=== PATIENT | female | born 1930 | race Caucasian/White ===

== ENCOUNTER → 2017-06-10 | Outpatient (CLI) | payer MEDICARE, OTHER ==
[~2017-06-10] MED LIST: CYAN500 PO; METO25 PO; SPIR25 PO; WARF2.5 PO
[2017-06-10 15:23] LABS: BASOPHILS ABSOLUTE AUTO 0.04 K/mm3 (0.00-0.23); BASOPHILS PERCENT AUTO 1 % (0-2); EOSINOPHILS ABSOLUTE AUTO 0.14 K/mm3 (0.00-0.68); EOSINOPHILS PERCENT AUTO 2 % (0-6); Hematocrit 46.4 % (33.0-51.0); Hemoglobin 14.6 g/dL (11.5-16.0); IMMATURE GRAN ABSOLUTE AUTO 0.01 K/mm3 (0.00-0.10); IMMATURE GRAN PERCENT AUTO 0 % (0-1); LYMPHOCYTES PERCENT AUTO 32 % (21-46); MONOCYTES ABSOLUTE AUTO 0.55 K/mm3 (0.16-1.47); MONOCYTES PERCENT AUTO 8 % (4-13); Mean Corpuscular HGB 28.5 pg (26.0-34.0); Mean Corpuscular HGB Conc 31.5 g/dL (31.5-36.5); Mean Corpuscular Volume 90 fL (80-100); Mean Platelet Volume 11.5 fL (9.1-12.4); NEUTROPHILS ABSOLUTE AUTO 4.25 K/mm3 (1.96-9.15); NEUTROPHILS PERCENT AUTO 58 % (41-73); Platelet Count 202 K/mm3 (150-400); RDW Coefficient Variation 13.5 % (11.7-14.2); RDW Standard Deviation 45.3 fL (35.1-46.3); Red Blood Cell Count 5.13 M/mm3 (3.80-5.20); White Blood Cell Count 7.29 K/mm3 (4.00-11.30)
[2017-06-10 15:42] LABS: Alanine Aminotransfer (ALT/SGP 21 U/L (12-78); Albumin, Blood 3.7 g/dL (3.4-5.0); Alk Phos 73 U/L (50-136); Anion Gap 8 mmol/L (6-16); Aspartate Aminotrans (AST/SGOT 20 U/L (12-37); Bilirubin, Total 0.5 mg/dL (0.1-1.0); Blood Urea Nitrogen 25 mg/dL (8-24); Bun/Creatinine Ratio 27.7 (12.0-20.0); CO2, Blood 30 mmol/L (21-32); Calcium, Blood 9.2 mg/dL (8.5-10.1); Chloride, Blood 105 mmol/L (98-108); Globulin, Blood 3.7 g/dL (2.2-4.0); Glomerular Filtration Rate >60 (60-); Glucose, Blood 97 mg/dL (70-99); Potassium, Blood 4.4 mmol/L (3.5-5.5); Sodium, Blood 143 mmol/L (136-145); Total Protein, Blood 7.4 g/dL (6.4-8.2)
== END ==
LOC: LAB 15:15
PROVIDERS: Internal Medicine
DX: R60.9 Edema, unspecified (principal); G47.11 Idiopathic hypersomnia with long sleep time; F03.90 Unspecified dementia, unspecified severity, without behavioral disturbance, psychotic disturbance, mood disturbance, and anxiety
CPT/HCPCS: 80053; 84443; 85025

== ENCOUNTER 2018-08-22 12:04 | Inpatient (IN) | payer MEDICARE, OTHER ==
[~2018-08-22] VITALS: Ht 160 cm; Wt 57.3 kg
[~2018-08-22 12:04] MED LIST changes: +ASPI81CH PO; +Augmentin 875-1 EACH PO; +DONE10 PO; +Daily Multivit1 EAC2 PO; +Exelon1 EACH TD; +Flagyl500 MG PO; +KEFLEX250 MG PO; +TOCO1000 PO
[2018-08-22 12:48] LABS: BASOPHILS ABSOLUTE AUTO 0.01 K/mm3 (0.00-0.23); BASOPHILS PERCENT AUTO 0 % (0-2); EOSINOPHILS PERCENT AUTO 0 % (0-6); Hematocrit 40.7 % (33.0-51.0); Hemoglobin 12.8 g/dL (11.5-16.0); IMMATURE GRAN ABSOLUTE AUTO 0.04 K/mm3 (0.00-0.10); IMMATURE GRAN PERCENT AUTO 0 % (0-1); LYMPHOCYTES ABSOLUTE AUTO 0.85 K/mm3 (0.84-5.20); LYMPHOCYTES PERCENT AUTO 9 % (21-46); MONOCYTES ABSOLUTE AUTO 0.72 K/mm3 (0.16-1.47); MONOCYTES PERCENT AUTO 8 % (4-13); Mean Corpuscular HGB 28.9 pg (26.0-34.0); Mean Corpuscular HGB Conc 31.4 g/dL (31.5-36.5); Mean Corpuscular Volume 92 fL (80-100); Mean Platelet Volume 11.6 fL (9.1-12.4); NEUTROPHILS ABSOLUTE AUTO 7.43 K/mm3 (1.96-9.15); NEUTROPHILS PERCENT AUTO 82 % (41-73); Platelet Count 147 K/mm3 (150-400); RDW Coefficient Variation 13.7 % (11.7-14.2); Red Blood Cell Count 4.43 M/mm3 (3.80-5.20); White Blood Cell Count 9.05 K/mm3 (4.00-11.30)
[2018-08-22 13:09] LABS: Alanine Aminotransfer (ALT/SGP 82 U/L (12-78); Albumin, Blood 2.7 g/dL (3.4-5.0); Albumin/Globulin Ratio 0.7 (0.8-1.8); Alk Phos 95 U/L (50-136); Anion Gap 7 mmol/L (6-16); Aspartate Aminotrans (AST/SGOT 105 U/L (12-37); Bilirubin, Total 0.6 mg/dL (0.1-1.0); Blood Urea Nitrogen 27 mg/dL (8-24); Bun/Creatinine Ratio 38.6 (12.0-20.0); CO2, Blood 29 mmol/L (21-32); Calcium, Blood 8.9 mg/dL (8.5-10.1); Chloride, Blood 104 mmol/L (98-108); Globulin, Blood 3.7 g/dL (2.2-4.0); Glomerular Filtration Rate >60 (60-); Glucose, Blood 112 mg/dL (70-99); Potassium, Blood 3.4 mmol/L (3.5-5.5); Sodium, Blood 140 mmol/L (136-145); Total Protein, Blood 6.4 g/dL (6.4-8.2)
[2018-08-22 16:26] LABS: Troponin I 0.017 ng/mL (0.000-0.040)
[2018-08-22 16:27] LABS: Thyroid Stimulating Hormone 0.914 uIU/mL (0.360-4.800)
--- NOTE | 2018-08-22 19:15 | NUR ---
ALERT TO SELF, AND WHERE SHE IS. PER S.O. "NEVER KNOWS DATE." SPEECH CLEAR. KALYN. CHAVEZ. LEFT FACIAL DROOP. LEFT HAND WEAKNESS. BOTH ARMS DRIFT WHEN HELD OUT. WEAK LEFT LOWER EXT. PER S.O. NORMALLY INCONTINENT OF URINE AND STOOL. SOME DEMENTIA PER S.O. COOPERATIVE. PLEASANT. UNLABORED RESPIRATIONS. REPORT TO NIGHT RN
--- NOTE | 2018-08-23 05:11 | NUR ---
VSS, AFEBRILE, A/O, HOLD HTN MEDICATION UNTIL 1600 TODAY PER COMMINICATION ORDER FROM MD. PT'S SPEECH IS VERY CLEAR, NO INDICATION OF CVA. L FACIAL DROOP APPEARS TO BE RESOLVING OVERNOC. KEEP HOB ELEVATED TO 45 DEGREES. NO SIGNIFICANT CHANGES NOTED. WILL REPORT TO ON-COMING SHIFT.
[2018-08-23 05:40] LABS: BASOPHILS ABSOLUTE AUTO 0.01 K/mm3 (0.00-0.23); BASOPHILS PERCENT AUTO 0 % (0-2); EOSINOPHILS PERCENT AUTO 0 % (0-6); Hematocrit 38.1 % (33.0-51.0); Hemoglobin 12.1 g/dL (11.5-16.0); IMMATURE GRAN ABSOLUTE AUTO 0.03 K/mm3 (0.00-0.10); IMMATURE GRAN PERCENT AUTO 0 % (0-1); LYMPHOCYTES ABSOLUTE AUTO 1.05 K/mm3 (0.84-5.20); LYMPHOCYTES PERCENT AUTO 12 % (21-46); MONOCYTES ABSOLUTE AUTO 0.72 K/mm3 (0.16-1.47); MONOCYTES PERCENT AUTO 8 % (4-13); Mean Corpuscular HGB 28.8 pg (26.0-34.0); Mean Corpuscular HGB Conc 31.8 g/dL (31.5-36.5); Mean Corpuscular Volume 91 fL (80-100); NEUTROPHILS ABSOLUTE AUTO 7.14 K/mm3 (1.96-9.15); NEUTROPHILS PERCENT AUTO 80 % (41-73); Platelet Count 143 K/mm3 (150-400); RDW Coefficient Variation 13.8 % (11.7-14.2); RDW Standard Deviation 46.1 fL (35.1-46.3); White Blood Cell Count 8.95 K/mm3 (4.00-11.30)
[2018-08-23 05:49] LABS: International Normalized Ratio 1.05; Prothrombin Time Results 11.1 Sec (9.7-11.5)
[2018-08-23 06:05] LABS: Alanine Aminotransfer (ALT/SGP 75 U/L (12-78); Albumin, Blood 2.4 g/dL (3.4-5.0); Albumin/Globulin Ratio 0.7 (0.8-1.8); Alk Phos 95 U/L (50-136); Anion Gap 7 mmol/L (6-16); Aspartate Aminotrans (AST/SGOT 83 U/L (12-37); Bilirubin, Total 0.5 mg/dL (0.1-1.0); Blood Urea Nitrogen 18 mg/dL (8-24); Bun/Creatinine Ratio 32.5 (12.0-20.0); CHOL/HDL RATIO 2.3; CO2, Blood 26 mmol/L (21-32); Calcium, Blood 8.4 mg/dL (8.5-10.1); Chloride, Blood 109 mmol/L (98-108); Cholesterol 100 mg/dL (50-200); Creatinine, Blood 0.55 mg/dL (0.40-1.00); Globulin, Blood 3.5 g/dL (2.2-4.0); Glomerular Filtration Rate >60 (60-); Glucose, Blood 90 mg/dL (70-99); HDL Cholesterol 43 mg/dL (>39); LDL/HDL RATIO 1.1; Low Density Lipoprotein Chol 46 mg/dL (0-110); Potassium, Blood 3.9 mmol/L (3.5-5.5); Sodium, Blood 142 mmol/L (136-145); Total Protein, Blood 5.9 g/dL (6.4-8.2); Triglycerides 53 mg/dL (30-160); Very Low Density Lipoprot Chol 10 mg/dL (6-32)
[2018-08-23 10:49] LABS: Campylobacter Sp Not Detected (NOT DETECT)
[2018-08-23 10:50] LABS: Adenovirus F 40/41 Not Detected (NOT DETECT); Astrovirus Not Detected (NOT DETECT); Cryptosporidium Not Detected (NOT DETECT); Cyclospora Cayetanensis Not Detected (NOT DETECT); E. Coli O157 Not Detected (NOT DETECT); Entamoeba Histolytica Not Detected (NOT DETECT); Enteroaggregative E. coli-EAEC Not Detected (NOT DETECT); Enteropathogenic E. coli-EPEC Not Detected (NOT DETECT); Enterotoxigenic E. coli-ETEC Not Detected (NOT DETECT); Giardia Lamblia Not Detected (NOT DETECT); Norovirus GI/GII Not Detected (NOT DETECT); Plesiomonas Shigelloides Not Detected (NOT DETECT); Rotavirus A Not Detected (NOT DETECT); Salmonella Sp Not Detected (NOT DETECT); Sapovirus Not Detected (NOT DETECT); Shiga Toxin-prod E. coli-STEC Not Detected (NOT DETECT); Shigella/Enteroin E. coli-EIEC Not Detected (NOT DETECT); Vibrio Cholerae Not Detected (NOT DETECT); Vibrio Sp Not Detected (NOT DETECT); Yersinia Enterocolitica Not Detected (NOT DETECT)
--- NOTE | 2018-08-23 16:59 | NUR ---
SUMMARY PT IS A/O TO SELF & FAMILY, HX DEMENTIA. SHE HAS BEEN CALM T/O DAY, FAMILY @ BEDSIDE MOST OF DAY. DX CVA, SHE HAS MILD L FACIAL DROOP, DRY TRANSFER MAN & DORSIFLEX =. SPEECH IS CLEAR SOMEWHAT SLOWED RESPONSES, DOES NOT ALWAYS ASNW APPROP D/T DEMENTIA. ISTRATE IN TO SEE HER & FAMILY, STATE IMPROVEMENT. SPEECHTHER IN THIS AM, ADV DIET TO PUREED/NECTAR THICK BY SPOONFULS. SHE HAS TAKEN SM AMTS TODAY, SOME COUGHING NOTED WITH SWALLOW, ENCOURAGED FAMILY TO GIVE SLOWLY WITH HOB FULLY ELEVATED. PT UP AMB IN BREWER W [facility] TODAY, 1 ASSIST FWW/GB. VSS.
[2018-08-24 05:50] LABS: International Normalized Ratio 1.11; Prothrombin Time Results 11.7 Sec (9.7-11.5)
--- NOTE | 2018-08-24 07:29 | NUR ---
Rn summary: Patient is pleasant and cooperative. She is NOOKSACK and sometimes slow to respond. Unsure if it is due to CVA or to hearing problem. 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 Pupils equal but pupils small, minnimal reaction noted. Pt does get thickened liquids via spoon. Still had coughing afterward. Pt is incontinent. Turned q 2 hours. Call light in reach. Frequent monitoring.
[2018-08-24] MEDS ORDERED: CEPH250A PO (10:45)
[2018-08-24] MEDS ORDERED: Florastor250 MG PO (10:47)
[2018-08-24] MEDS ORDERED: Anti-Diarrheal2 MG PO (10:47)
[2018-08-24] MEDS ORDERED: WARF5 PO (10:48)
[2018-08-24] MEDS ORDERED: ENOX100I SC (10:49)
--- NOTE | 2018-08-24 12:09 | NUR ---
DISCHARGE PT UP TO CHAIR FOR BF, PARTICIPATE W [facility], AMBULATE IN BREWER W FWW, [address] LOPEZTRATE IN TO SEE PT/FAMILY, PLACE D/C ORDERS W HOMEHEALTH, SOC SERV ARRANGE FOR [facility] HH/FAMILY REQUEST. SCRIPTS TO [facility]. FLOOR [facility] PREPARE D/C PACKET. D/C INSTRUCT REVIEWED W PT . EQUIPMENT SUPERINTENDENT ASSIST HER TO DRESS. W/C ESCORT FROM HOSP PROVIDED. THEY ARE PLEASANT/APPRECIATIVE.
== END 2018-08-24 12:18 | disposition home health service (06) | DRG 65 ==
LOC: ER 12:04 → MEDS 14:19 → ENPENDDIS 08-24 08:53 → MEDS 08-24 12:18
PROVIDERS: Internal Medicine; ADMIT Family Medicine
DX: I63.9 Cerebral infarction, unspecified (principal); G81.94 Hemiplegia, unspecified affecting left nondominant side; N39.0 Urinary tract infection, site not specified; R29.810 Facial weakness; R47.01 Aphasia; Z79.01 Long term (current) use of anticoagulants; F03.90 Unspecified dementia, unspecified severity, without behavioral disturbance, psychotic disturbance, mood disturbance, and anxiety; I10 Essential (primary) hypertension; E87.6 Hypokalemia; B96.1 Klebsiella pneumoniae [K. pneumoniae] as the cause of diseases classified elsewhere; Z87.891 Personal history of nicotine dependence; Z86.711 Personal history of pulmonary embolism; Z66 Do not resuscitate
CPT/HCPCS: 36415; 36416; 70450; 80053; 80061; 81001; 84443; 84484; 85025; 85220; 85610; 85651; 87077; 87086; 87186; 87507; 92610; 93005; 93010; 97116; 97162; 97167; 97530; 99285-25; J0696; J1650; J3480; J7030; P9612